=== PATIENT | male | born 2000 | race Caucasian/White ===

== ENCOUNTER 2022-12-16 20:58 | Emergency (ER) | payer OTHER, MEDICAID ==
[2022-12-16 21:07] VITALS: BP 149/93
--- NOTE | 2022-12-16 22:23 | ED Physician Documentation ---
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 No trouble moving the thumb. No other complaints at this time. PD PAST MEDICAL HISTORY - Allergies Allergies/Adverse Reactions: Allergies Allergy/AdvReac Type Severity Reaction Status Date / Time No Known Drug Allergies Allergy Verified 12/16/22 21:00 PD ED PE NORMAL - Vitals Vital signs reviewed: Yes - General General: Alert and oriented X 3, No acute distress, Well developed/nourished - HEENT HEENT: Atraumatic, PERRL, EOMI, Moist mucous membranes - Neck Neck: Supple, no meningeal sign - Cardiac Cardiac: Strong equal pulses - Respiratory Respiratory: No respiratory distress - Derm Derm: Normal color, Warm and dry, No rash, Other (4 mm laceration on ulnar aspec t of proximal thumb, over mid-proximal thumb.) - Extremities Extremities: No deformity - Neuro Neuro: Alert and oriented X 3 - Psych Psych: Normal mood, Normal affect Results - Vitals Vitals: Oxygen O2 Source Room air Procedures - Laceration (location) L thumb Length in cm: 0.4 Wound type: Linear, Into subcut fat, Clean Neurovascular status: Sensory intact, Motor intact, Vascular intact Anesthesia: Lidocaine 1% Wound preparation: Betadine, Irrigated copiously NS, Wound explored, To the base Skin layer closure: Nylon Other: Patient tolerated well, No complications, Neurovascular intact, Dressing applied, Tetanus UTD PD Medical Decision Making - ED course Complexity details: considered differential, d/w patient ED course: The pt preferred a suture as opposed to a steri-strip to repair his small laceration, so this was done. We have discussed wound care at home, signs of infection, and the timeline for suture removal. Departure - Departure Disposition: 01 Home, Self Care Clinical Impression: Laceration Condition: Stable Instructions: ED Laceration Hand Comments: Please keep your wound clean and generally dry. You may let water and soap run over the wound but please do not rub, scrub, or immerse the wound until suture is removed. The suture should be removed in 5 to 7 days. This is a synthetic suture and will not absorb on its own. If you begin to notice redness and swelling spreading progressively away from the wound, please have it rechecked. Discharge Date/Time: 12/16/22 22:26
== END 2022-12-16 22:26 | disposition home or self-care (01) ==
LOC: ED 20:58
DX: S61.012A Laceration without foreign body of left thumb without damage to nail, initial encounter (principal); W26.0XXA Contact with knife, initial encounter; Y93.G9 Activity, other involving cooking and grilling; Y99.0 Civilian activity done for income or pay
CPT/HCPCS: 1040M; 12001; 99281